=== PATIENT | male | born 1935 | race Caucasian/White ===

== ENCOUNTER 2016-10-15 13:08 | Emergency (ER) | payer OTHER, MEDICARE ==
[~2016-10-15] VITALS: Ht 185.4 cm; Wt 84.2 kg
[~2016-10-15 13:08] MED LIST: ASPIR-LOW81 MG PO; CYANOCOBAL1000 MCG/2 IM; DORZOLAMIDE-TIM10 ML BOTH EYES; ELIQUIS5 MG PO; FOLTX TABLET1 EAC1 PO; LATANOPROST2.5 ML BOTH EYES; LOPRESSOR25 MG PO; METOPROLOL SUCC25 MG PO; SERTRALINE HCL50 MG PO; ZOCOR20 MG PO
[2016-10-15 14:12] LABS: HEMATOCRIT 43.6 % (38.0-50.0); MCHC 33.3 G/DL (30.0-36.0); MCV 90.1 FL (86-99); PLATELET COUNT 151 K/uL (156-360); RBC DIS.WIDTH-CV 12.8 % (11.8-14.6); RBC DIS.WIDTH-SD 42.3 % (39-53); RED BLOOD COUNT 4.84 M/uL (4.00-5.50); WHITE BLOOD COUNT 8.9 K/uL (4.1-10.2)
[2016-10-15 14:26] LABS: CHLORIDE 108 mEq/L (99-109); POTASSIUM 4.2 mEq/L (3.7-5.4); SODIUM 138 mEq/L (136-147)
[2016-10-15 14:27] LABS: GLUCOSE 103 mg/dL (70-99)
[2016-10-15 14:29] LABS: ANION GAP 8 MEQ/L (2-14)
[2016-10-15 14:31] LABS: GFR ESTIMATE (CALCULATED) > 59 mL/min/
[2016-10-15 14:32] LABS: TROP-I INTERPRETATION NEGATIVE; TROPONIN-I < 0.01 ng/mL (0.0-0.30); UREA NITROGEN (BUN) 18 mg/dL (9-23)
[2016-10-15 17:54] VITALS: BP 142/85
== END 2016-10-15 17:55 | disposition home or self-care (01) ==
LOC: EME 13:08
PROVIDERS: Emergency Medicine
DX: I48.91 Unspecified atrial fibrillation (principal); E86.0 Dehydration; R42 Dizziness and giddiness; R11.0 Nausea; E78.5 Hyperlipidemia, unspecified; Z79.01 Long term (current) use of anticoagulants
CPT/HCPCS: 71020; 80048; 84484; 85027; 93005; 99281; 99285; J7030

== ENCOUNTER → 2017-03-15 | Outpatient (CLI) | payer OTHER, MEDICARE ==
[~2017-03-15] VITALS: Ht 188 cm; Wt 84.8 kg
== END | disposition home or self-care (01) ==
LOC: AMB 11:16
PROC: 0DJD8ZZ Inspection of Lower Intestinal Tract, Via Natural or Artificial Opening Endoscopic (ICD-10-PCS; principal; 2017-03-15)
DX: K57.30 Diverticulosis of large intestine without perforation or abscess without bleeding (principal); K59.09 Other constipation; K40.90 Unilateral inguinal hernia, without obstruction or gangrene, not specified as recurrent; N40.0 Benign prostatic hyperplasia without lower urinary tract symptoms; F41.1 Generalized anxiety disorder; H40.9 Unspecified glaucoma; E78.5 Hyperlipidemia, unspecified; D69.6 Thrombocytopenia, unspecified; E53.8 Deficiency of other specified B group vitamins; Z87.891 Personal history of nicotine dependence; Z79.01 Long term (current) use of anticoagulants; I10 Essential (primary) hypertension; I48.2 Chronic atrial fibrillation
CPT/HCPCS: 93005

== ENCOUNTER 2017-04-27 07:11 | Day surgery (SDC) | payer OTHER, MEDICARE ==
[~2017-04-27] VITALS: Ht 188 cm; Wt 80.7 kg
[2017-04-27 07:40] VITALS: BP 127/73
[2017-04-27 13:50] VITALS: BP 128/80
[2017-04-27 16:05] VITALS: BP 122/78
[2017-04-27 19:59] VITALS: BP 120/64
[2017-04-27 23:40] VITALS: BP 116/69
[2017-04-28 03:41] VITALS: BP 118/67
[2017-04-28 07:33] VITALS: BP 131/84
[2017-04-28] MEDS ORDERED: TRAMADOL HCL50 MG PO (11:28)
== END 2017-04-28 12:15 | disposition home or self-care (01) ==
LOC: SDC 07:11 → 2SOUTH 10:54 → 2EAST 10:54 → ENRESERV 11:00 → SDC 13:03 → 2EAST 13:51 → SDC 16:13 → 2EAST 04-28 12:15
PROC: 0YQ50ZZ Repair Right Inguinal Region, Open Approach (ICD-10-PCS; principal; 2017-04-27)
DX: K40.90 Unilateral inguinal hernia, without obstruction or gangrene, not specified as recurrent (principal); D17.6 Benign lipomatous neoplasm of spermatic cord; E78.5 Hyperlipidemia, unspecified; D69.6 Thrombocytopenia, unspecified; E53.8 Deficiency of other specified B group vitamins; I10 Essential (primary) hypertension; I48.2 Chronic atrial fibrillation; Z79.01 Long term (current) use of anticoagulants; Z87.891 Personal history of nicotine dependence; N40.0 Benign prostatic hyperplasia without lower urinary tract symptoms; F41.1 Generalized anxiety disorder; K59.09 Other constipation; Z80.42 Family history of malignant neoplasm of prostate; Z82.49 Family history of ischemic heart disease and other diseases of the circulatory system; Z84.1 Family history of disorders of kidney and ureter
CPT/HCPCS: 88304; C1781; G0378; G8978 GP CI; G8979 GP CH; G8987 GO CI; G8988 GO CH; J0690; J1170; J1650; J2250; J2405; J3010; J7120; S0020

== ENCOUNTER 2017-10-12 17:05 | Emergency (ER) | payer OTHER, MEDICARE ==
[~2017-10-12] VITALS: Ht 185.4 cm; Wt 83.9 kg
[~2017-10-12 17:05] MED LIST changes: +TRAMADOL HCL50 MG PO
[2017-10-12 17:31] LABS: HEMATOCRIT 42.7 % (38.0-50.0); HEMOGLOBIN 14.7 G/DL (12.5-16.6); MCH 31.3 PG (29.0-34.0); MCHC 34.4 G/DL (30.0-36.0); PLATELET COUNT 154 K/uL (156-360); RBC DIS.WIDTH-CV 13.2 % (11.8-14.6); RED BLOOD COUNT 4.69 M/uL (4.00-5.50); WHITE BLOOD COUNT 10.2 K/uL (4.1-10.2)
[2017-10-12 17:40] LABS: CHLORIDE 106 mEq/L (99-109); POTASSIUM 4.5 mEq/L (3.7-5.4); SODIUM 138 mEq/L (136-147)
[2017-10-12 17:41] LABS: GLUCOSE 107 mg/dL (70-99)
[2017-10-12 17:45] LABS: CREATININE 1.1 mg/dL (0.6-1.3); GFR ESTIMATE (CALCULATED) > 59 mL/min/ (58.99-99999)
[2017-10-12 17:46] LABS: UREA NITROGEN (BUN) 21 mg/dL (9-23)
[2017-10-12 17:56] LABS: TROP-I INTERPRETATION NEGATIVE; TROPONIN-I < 0.01 ng/mL (0.0-0.30)
[2017-10-12 20:17] LABS: APPEARANCE CLEAR ((CLEAR)); BILIRUBIN NEGATIVE; BLOOD SMALL; COLOR YELLOW ((YELLOW)); GLUCOSE (STRIP) NEGATIVE; KETONES 5; LEUKOCYTES NEGATIVE; NITRITE NEGATIVE; PROTEIN (STRIP) NEGATIVE; SPECIFIC GRAVITY 1.025 (1.000-1.030)
[2017-10-12 20:21] LABS: BACTERIA RARE /HPF; EPITHELIAL CELLS RARE /HPF; MUCUS TRACE /LPF; RED BLOOD CELLS 20-30 /HPF (0-5); UCUL ADDED? NO; WHITE BLOOD CELLS 0-5 /HPF (0-5)
[2017-10-12] MEDS ORDERED: AUGMENTIN875 MG PO (21:42)
[2017-10-12 22:29] VITALS: BP 131/77
== END 2017-10-12 22:31 | disposition home or self-care (01) ==
LOC: EME 17:05
DX: J32.2 Chronic ethmoidal sinusitis (principal); R53.83 Other fatigue; I48.91 Unspecified atrial fibrillation; I67.89 Other cerebrovascular disease; E78.5 Hyperlipidemia, unspecified; F41.9 Anxiety disorder, unspecified; Z79.01 Long term (current) use of anticoagulants; Z87.891 Personal history of nicotine dependence; Z98.42 Cataract extraction status, left eye; Z86.73 Personal history of transient ischemic attack (TIA), and cerebral infarction without residual deficits; Z85.9 Personal history of malignant neoplasm, unspecified
CPT/HCPCS: 70450; 80048; 81003; 84484; 85027; 87086; 93005; 99281; 99284